=== PATIENT | male | born 1970 | race African-American/Black ===

== ENCOUNTER 2024-02-28 22:01 | Emergency (ER) | payer OTHER ==
[2024-02-28 22:07] VITALS: TEMP 98; BMI 28.7
[2024-02-28] MEDS ORDERED: oxyCODONE HCL 5 MG TABLET ONE (23:56)
[2024-02-28] MEDS: oxyCODONE HCL 5 MG TABLET PO ONE (23:59)
[2024-02-29 01:00] VITALS: BP 145/88; PULSE 78; RESP 14
== END 2024-02-29 00:59 | disposition home or self-care (01) ==
LOC: JER 22:01
DX: S22.41XA Multiple fractures of ribs, right side, initial encounter for closed fracture (principal); V43.52XA Car driver injured in collision with other type car in traffic accident, initial encounter
CPT/HCPCS: 99283-25